=== PATIENT | male | born 1940 | race Caucasian/White ===

== ENCOUNTER 2018-07-24 11:22 | Emergency (ER) | payer MEDICARE, MEDICAID, OTHER ==
[2018-07-24 13:26] LABS: ADD MAN DIFF? NO
[2018-07-24 13:32] LABS: BASOPHIL # 0.1 10^3/ul (0.0-0.1); BASOPHILS % 0.9 % (0.0-2.0); EOSINOPHILS # 0.2 10^3/ul (0.0-0.5); EOSINOPHILS % 3.1 % (0.0-7.0); HEMOGLOBIN 13.6 g/dl (14.0-18.0); LYMPHOCYTES # 1.7 10^3/ul (0.8-2.9); MEAN CORPUSCULAR HEMOGLOBIN 26.7 pg (29.0-33.0); MEAN CORPUSCULAR HGB CONC 32.4 g/dl (32.0-37.0); MEAN CORPUSCULAR VOLUME 82.5 fl (82.0-101.0); MEAN PLATELET VOLUME 11.9 fl (7.4-10.4); MONOCYTE # 0.5 10^3/ul (0.3-0.9); MONOCYTES % 7.9 % (0.0-11.0); NEUTROPHIL # 4.3 10^3/ul (1.6-7.5); PLATELET COUNT 275 10^3/UL (140-415); RED BLOOD COUNT 5.09 10^6/ul (4.70-6.10); RED CELL DISTRIBUTION WIDTH 14.5 % (11.5-14.5)
[2018-07-24 13:32] LABS: WHITE BLOOD COUNT 6.8 10^3/ul (4.8-10.8)
[2018-07-24 13:50] LABS: ANION GAP 12 (5-13); BLOOD UREA NITROGEN 13 mg/dl (7-20); CALCIUM 9.7 mg/dl (8.4-10.2); CARBON DIOXIDE 29 mmol/L (21-31); CHLORIDE 99 mmol/L (97-110); GLUCOSE 101 mg/dl (70-220); SODIUM 140 mmol/L (135-144)
== END 2018-07-24 15:00 | disposition home or self-care (01) ==
LOC: E/R 11:22
DX: K40.91 Unilateral inguinal hernia, without obstruction or gangrene, recurrent (principal)
CPT/HCPCS: 36415; 74176; 80048; 83605; 85025; 99284-25

== ENCOUNTER 2018-10-07 10:36 | Day surgery (SDC) | payer MEDICARE ==
[2018-10-07] MEDS ORDERED: LIDOCAINE 2% (SDV) 5 ML INJ (13:21)
[2018-10-07] MEDS ORDERED: PROPOFOL 60 ML (13:21)
[2018-10-07] MEDS ORDERED: ALBUTEROL 0.083% (NEB) 2.5 MG/3 ML AMP HHN (13:30)
[2018-10-07] MEDS ORDERED: LABETALOL HCL 20MG INJ IV (13:30)
[2018-10-07] MEDS ORDERED: ONDANSETRON 4 MG INJ IV (13:30)
[2018-10-07] MEDS ORDERED: DIPHENHYDRAMINE 50 MG INJ IV (13:30)
[2018-10-07] MEDS ORDERED: hydrALAzine 20 MG INJ IV (13:30)
[2018-10-07] MEDS ORDERED: FENTAnyl 50 MCG/ML VIAL IV (13:30)
[2018-10-07] MEDS ORDERED: EPHEDrine SULFATE 50 MG/5 ML SYG IV (13:30)
== END 2018-10-07 15:20 | disposition home or self-care (01) ==
LOC: GIL 10:36
DX: R19.4 Change in bowel habit (principal); K64.8 Other hemorrhoids; K57.30 Diverticulosis of large intestine without perforation or abscess without bleeding
CPT/HCPCS: 45378